=== PATIENT | male | born 1990 | race African-American/Black ===

== ENCOUNTER 2023-11-06 16:13 | Inpatient (IN) | payer OTHER ==
[2023-11-06 16:37] VITALS: BMI 22.6
[2023-11-06] MEDS ORDERED: NICOTINE POLACRILEX 4 MG GUM BUC PRN (20:04)
[2023-11-06] MEDS ORDERED: NALOXONE HCL (KLOXXADO) 8 MG SPRAY NS PRN (20:04)
[2023-11-06] MEDS ORDERED: hydrOXYzine PAMOATE 25 MG CAPSULE (FP) PO PRN (20:04)
[2023-11-06] MEDS ORDERED: MAGNESIUM HYDROX 2400MG/30ML ORAL SUSPENSION 30 ML CUP PO PRN (20:04)
[2023-11-06] MEDS ORDERED: BENZOCAINE/MENTHOL (CHLORASEPTIC ) LOZENGE MM PRN (20:04)
[2023-11-06] MEDS ORDERED: BENZONATATE 200 MG CAPSULE PO PRN (20:04)
[2023-11-06] MEDS ORDERED: IBUPROFEN 400 MG TABLET (FP) PO PRN (20:04)
[2023-11-06] MEDS ORDERED: IBUPROFEN 600 MG TABLET (FP) PO PRN (20:04)
[2023-11-06] MEDS ORDERED: ACETAMINOPHEN 325 MG TABLET (FP) PO PRN (20:04)
[2023-11-06] MEDS ORDERED: POLYETHYLENE GLYCOL (HEALTHYLAX) 3350 17 GM PACKET PO PRN (20:04)
[2023-11-06] MEDS ORDERED: guaiFENesin 600 MG TABLET.ER (FP) PO PRN (20:04)
[2023-11-06] MEDS ORDERED: MAG HYDROX/AL HYDROX/SIMETH 30 ML UNIT-DOSE CUP PO PRN (20:04)
[2023-11-06] MEDS ORDERED: LOPERAMIDE HCL 2 MG CAPSULE PO PRN (20:04)
[2023-11-06] MEDS ORDERED: NALOXONE HCL 0.4 MG/ML VIAL IM PRN (20:04)
[2023-11-06] MEDS: TUBERCULIN PPD 5 TU/0.1ML SYRINGE (IN PATIENT USE ONLY) ID ONE (20:31)
[2023-11-06] MEDS: MELATONIN 5 MG TABLETS PO SCH (22:59)
[2023-11-06] MEDS: THIAMINE 100 MG TABLET PO SCH (22:59)
[2023-11-07] MEDS ORDERED: TUBERCULIN PPD 5 TU/0.1ML SYRINGE (IN PATIENT USE ONLY) ID ONE (00:07)
[2023-11-07 06:49] VITALS: BP 109/66; PULSE 88; RESP 18; TEMP 97.7
[2023-11-07] MEDS ORDERED: PRENATAL VITAMINS W/ FOLIC ACID TABLET (FP) PO SCH (10:00)
[2023-11-07] MEDS ORDERED: NICOTINE 14 MG/24 HOURS TOPICAL PATCH TD SCH (10:00)
[2023-11-07] MEDS: TUBERCULIN PPD 5 TU/0.1ML SYRINGE (IN PATIENT USE ONLY) ID ONE (10:55)
[2023-11-07 11:48] LABS: HEMATOCRIT 42.1 % (35.4-49); HEMOGLOBIN 13.9 GM/dL (11.7-16.9); MCH 31.1 pg (25.7-33.7); MCHC 33.1 g/dl (32.0-35.9); MEAN CELL VOLUME 93.9 fl (80-96); MEAN PLT VOLUME 7.6 fl (7.5-11.1); PLATELET COUNT 237 10^3/uL (134-434); RBC 4.48 M/mm3 (4.00-5.60); RDW 14.9 % (11.9-15.9); WHITE BLOOD COUNT 5.6 K/mm3 (4.0-10.0)
[2023-11-07 11:49] LABS: CHLORIDE 109 mmol/L (98-107); POTASSIUM 4.1 mmol/L (3.5-5.1); SODIUM 141 mmol/L (136-145)
[2023-11-07 11:55] LABS: ANION GAP 5 mmol/L (4-13); BLOOD UREA NITROGEN 8.1 mg/dL (7-18); CALCIUM 8.8 mg/dL (8.5-10.1); CO2 28 mmol/L (21-32); GLUCOSE,RANDOM 97 mg/dL (74-106)
[2023-11-07 11:56] LABS: ALBUMIN 3.1 g/dl (3.4-5.0)
[2023-11-07 11:58] LABS: SGOT/AST 10 U/L (15-37); SGPT/ALT 18 U/L (13-61)
[2023-11-07 11:59] LABS: CREATININE 0.7 mg/dL (0.55-1.3)
[2023-11-07 12:00] LABS: BILIRUBIN,TOTAL 0.3 mg/dL (0.2-1); TOT PROT 6.7 g/dl (6.4-8.2)
[2023-11-07 12:01] LABS: ALK PHOS 128 U/L (45-117)
[2023-11-07 13:11] LABS: SYPHILIS W/ RPR CONF REACTIVE (NONREACTIVE)
[2023-11-08] MEDS ORDERED: PRENATAL VITAMINS W/ FOLIC ACID TABLET (FP) PO SCH (06:00)
[2023-11-08] MEDS ORDERED: NICOTINE 14 MG/24 HOURS TOPICAL PATCH TD SCH (06:00)
== END 2023-11-07 14:17 | disposition left against medical advice (07) | DRG 770 ==
LOC: YASAS 16:13 → UNDOADMIN 20:20 → Y3N 20:20 → Y3NR 20:22
PROVIDERS: ADMIT Allergy & Immunology; ATTEND Psychiatry & Neurology Pain Medicine
PROC: HZ42ZZZ Group Counseling for Substance Abuse Treatment, Cognitive-Behavioral (ICD-10-PCS; principal; 2023-11-06)
DX: F15.20 Other stimulant dependence, uncomplicated (principal); F17.210 Nicotine dependence, cigarettes, uncomplicated; F20.0 Paranoid schizophrenia; B20 Human immunodeficiency virus [HIV] disease; F91.8 Other conduct disorders; Z91.199 Patient's noncompliance with other medical treatment and regimen due to unspecified reason; Z79.899 Other long term (current) drug therapy; Z86.19 Personal history of other infectious and parasitic diseases
CPT/HCPCS: 36415; 80053; 80307; 85027; 86593; 86780; 86803; 87522; 87811; 93005; 93010